=== PATIENT | male | born 1970 | race Caucasian/White ===

== ENCOUNTER → 2020-03-23 08:16 | Outpatient (CLI) | payer OTHER, SELFPAY ==
--- NOTE | 2020-03-23 08:29 | RAD_ITS ---
STUDY: X-RAY - ESOPHAGUS (BARIUM SWALLOW) WITH FLUOROSCOPY REASON FOR EXAM: Male, 50 years old. Acid reflux mostly at night, food getting stuck mid esoph TECHNIQUE: 18 view(s) of the esophagus were obtained following swallowing of barium. FLUOROSCOPY TIME (if supplied): (0:30) minutes/seconds COMPARISON: None. FINDINGS: There is no demonstrated esophageal foreign body. There is no demonstrated stricture or mucosal abnormality. There is circumferential narrowing of the distal esophagus at the gastroesophageal junction. The patient ingested a 12 mm tablet of barium. The tablet distracted at the gastroesophageal junction. Normal visualized aortic arch and descending thoracic aorta. Normal visualized pulmonary parenchyma. Normal visualized osseous structures of the thorax. RAD/Esophagus Dual Contrast IMPRESSION: Circumferential narrowing in the distal esophagus at the level of the gastroesophageal junction with trapping of the 12 mm tablet of barium. Electronically Signed: Jacek Chiang, at 12:23 EST , Service support ,
== END ==
PROVIDERS: PCP Nurse Practitioner Family; Referring Provider Internal Medicine Gastroenterology; Visit Provider Internal Medicine Gastroenterology
DX: R13.10 Dysphagia, unspecified (principal)
CPT/HCPCS: 74221

== ENCOUNTER 2020-06-23 17:32 | Emergency (ER) | payer OTHER, SELFPAY ==
[2020-06-23 17:34] VITALS: BP 145/100; PULSE 92; RESP 16; TEMP 35.9; O2SAT 98; BMI 26.1
[2020-06-23 17:39] VITALS: BP 145/100; PULSE 92; RESP 18; TEMP 35.9; O2SAT 98
--- NOTE | 2020-06-23 19:15 | RAD_ITS ---
STUDY: X-RAY - RIGHT KNEE REASON FOR EXAM: Male, 50 years old. knee injury TECHNIQUE: 4 view(s) of the knee. COMPARISON: None. FINDINGS: Normal visualized distal femur. Normal visualized proximal tibia and fibula. Normal proximal tibiofibular articulation. There is no demonstrated fracture. Normal medial femorotibial compartment. Normal lateral femorotibial compartment. Normal patellofemoral articulation. There is no demonstrated joint effusion. The soft tissue structures are unremarkable. RAD/Knee 4 or More Views IMPRESSION: Normal x-ray examination of the knee. Electronically Signed: Choco Carranza MD at 20:05 EST , Service support ,
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
[2020-06-23 20:46] VITALS: BP 140/87; PULSE 71; RESP 16; O2SAT 99
== END 2020-06-23 20:47 | disposition home or self-care (01) ==
PROVIDERS: Emergency Provider Emergency Medicine; PCP Nurse Practitioner Family
DX: S83.512A Sprain of anterior cruciate ligament of left knee, initial encounter (principal); Y04.0XXA Assault by unarmed brawl or fight, initial encounter
CPT/HCPCS: 73564; 99283

== ENCOUNTER 2021-02-16 14:34 | Emergency (ER) | payer OTHER, SELFPAY ==
[2021-02-16 14:35] VITALS: BP 170/95; PULSE 97; RESP 15; TEMP 36.3; O2SAT 94; BMI 24.9
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
[2021-02-16 16:26] LABS: Amphetamine Urine VISTA NEGATIVE (<1000 ng/mL); Barbiturate Urine VISTA NEGATIVE (< 200 ng/mL); Benzodiazepine Urine VISTA NEGATIVE (< 200 ng/mL); Cocaine Urine VISTA NEGATIVE (< 300 ng/mL); Ecstacy Urine VISTA NEGATIVE (< 500 ng/mL); Methadone Urine VISTA NEGATIVE (< 300 ng/mL); PCP Urine VISTA NEGATIVE (< 25 ng/mL); THC Urine VISTA NEGATIVE (< 50 ng/mL); Vista UDS pH Range 5
== END 2021-02-16 16:54 | disposition home or self-care (01) ==
PROVIDERS: Emergency Provider Emergency Medicine; PCP Nurse Practitioner Family
DX: Z77.098 Contact with and (suspected) exposure to other hazardous, chiefly nonmedicinal, chemicals (principal)
CPT/HCPCS: 80307; 99283

== ENCOUNTER → 2022-02-03 | Outpatient (CLI) | payer OTHER, SELFPAY ==
--- NOTE | 2022-02-03 15:04 | MRI_ITS ---
STUDY: MRI LUMBAR SPINE WITHOUT CONTRAST REASON FOR EXAM: Male, 51 years old. Lumbar spinal stenosis and spondylosis. TECHNIQUE: Standardized fat and water weighted pulse sequences were obtained in the sagittal and axial planes. COMPARISON: None FINDINGS: T11-T12 and T12-L1: (Sagittal only). Normal endplates. Normal disc height, hydration and morphology. No ventral extradural defects. Normal central canal and bilateral intervertebral neural foramina. Normal lumbar lordosis. There is no substantial scoliosis. Normal conus medullaris that terminates at the mid L1 vertebral body level. L1-2: Normal endplates. Normal disc height, hydration and morphology. Normal bilateral facet joints. Normal central canal and bilateral lateral recesses. Normal bilateral intervertebral neural foramina. L2-3: Normal endplates. Normal disc height, hydration and morphology. Normal bilateral facet joints. Normal central canal and bilateral lateral recesses. Normal bilateral intervertebral neural foramina. L3-4: Normal endplates. Schmorl''s node in the L4 superior endplate with mild reactive edema. Mild disc space height narrowing. Mild ventral extradural defect due to posterior bulging annulus. Normal facet joints. Normal central canal and bilateral lateral recesses. Normal bilateral intervertebral neural foramina. L4-5: Normal endplates. Minimal disc space height narrowing with normal disc hydration. Mild ventral extradural defect due to small posterior bulging annulus. Mild left degenerative facet arthropathy. Normal right facet joint. Normal central canal and bilateral lateral recesses. Normal bilateral intervertebral neural foramina. L5-S1: Normal endplates. Moderately pronounced disc space height narrowing. Minimal ventral extra dural defect due to small posterior bulging annulus. 5.3 x 3.4 mm left medial synovial cyst. This is causing stenosis of the left lateral recess with suspicious minimal anterior displacement of the left S1 nerve root sleeve. Normal central canal and right lateral recess. Normal bilateral intervertebral neural foramina. Normal visualized sacral ala. Normal visualized paraspinous soft tissue structures. MRI/Spine Lumbar (Routine) IMPRESSION: 1. 5.3 x 3.4 mm left medial synovial cyst at L5-S1 disc space level causing stenosis of the left lateral recess. There is is suspicious anterior displacement of the left S1 nerve root sleeve. Additionally, small posterior bulging annulus and moderately pronounced L5-S1 degenerative disc space height narrowing. 2. Small L4-L5 posterior bulging annulus. 3. Small L3-L4 posterior bulging annulus and Schmorl''s node in the L4 superior with mild reactive edema of the underlying vertebral marrow. 4. No MRI evidence of lumbar extruded disc fragment. Electronically Signed: Fidel Hendricks MD at 16:03 EDT ,
== END | disposition home or self-care (01) ==
PROVIDERS: PCP Nurse Practitioner Family; Visit Provider Orthopaedic Surgery
DX: M48.061 Spinal stenosis, lumbar region without neurogenic claudication (principal); M51.36 Other intervertebral disc degeneration, lumbar region; M47.816 Spondylosis without myelopathy or radiculopathy, lumbar region
CPT/HCPCS: 72148

== ENCOUNTER → 2022-06-08 | Outpatient (CLI) | payer OTHER, SELFPAY ==
[2022-06-08 16:29] LABS: Hemoglobin 15.9 g/dL (13.0-16.5)
[2022-06-08 17:53] LABS: ALB/GLOB Ratio 1.1 RATIO (0.9-2.4); AST(SGOT) 24 U/L (15-37); Alanine Aminotransfer ALT/SGPT 43 U/L (16-61); Albumin, Serum 4.1 g/dL (3.2-5.0); Alkaline Phosphatase 132 U/L (45-117); Anion Gap 8 (5-15); BUN 27 mg/dL (7-18); BUN/Creat Ratio 23.1 RATIO (10-20); Calcium,Total 8.6 mg/dL (8.5-10.1); Chloride 106 mmol/L (98-107); Cholesterol 162 mg/dL (200); Creatinine, Serum 1.17 mg/dL (0.70-1.30); EST Glomerular Filtration Rate 70 mL/min (>60); Est Glom Filt Rate - Afr Amer 84 mL/min (>60); Globulin 3.8 g/dL (2.2-4.2); Glucose 107 mg/dL (74-106); High Density Lipoprotein 48 mg/dL; PSA,Total- Diagnostic 2.68 ng/mL (0.0-4.0); Potassium 4.1 mmol/L (3.5-5.1); Protein, Total 7.9 g/dL (6.4-8.2); Sodium Level 139 mmol/L (136-145); Thyroid Stim Hormone (TSH) 2.08 uIU/mL (0.358-3.74); Triglycerides 118 mg/dL; Very Low Density Lipoprotein 24 mg/dL (5-40)
[2022-06-09 07:15] LABS: Estradiol 23.7 pg/mL; Follicle Stimulating Hormone 3.8 mIU/mL; Prolactin 7.3 ng/mL
[2022-06-13 15:08] LABS: Testosterone, % Free 2.56 % (1.50-4.20); Testosterone, Free 7.32 ng/dL (5.00-21.00)
[2022-06-13 21:00] LABS: Sex Hormone-binding Globulin 30.6 nmol/L (19.3-76.4); Testosterone, Total 286 ng/dL (264-916)
== END | disposition home or self-care (01) ==
PROVIDERS: PCP Nurse Practitioner Family; Visit Provider Registered Nurse
DX: Z00.00 Encounter for general adult medical examination without abnormal findings (principal); E29.1 Testicular hypofunction; R53.83 Other fatigue; Z12.5 Encounter for screening for malignant neoplasm of prostate; R68.82 Decreased libido; R63.5 Abnormal weight gain
CPT/HCPCS: 36415; 80053; 80061; 82670; 83001; 83002; 84146; 84153; 84270; 84402; 84403; 84443; 85014; 85018

== ENCOUNTER 2022-08-29 06:47 | Emergency (ER) | payer OTHER, SELFPAY ==
[2022-08-29 06:48] VITALS: BP 157/64; PULSE 78; RESP 18; TEMP 36; O2SAT 98
[2022-08-29 06:51] VITALS: BMI 24.5
--- NOTE | 2022-08-29 07:01 | RAD_ITS ---
STUDY: X-RAY - LEFT HAND REASON FOR EXAM: Male, 52 years old patient with left-sided hand pain. TECHNIQUE: 3 view(s) of the hand. COMPARISON: Prior comparison studies are not available for review at this time. FINDINGS: There is joint space narrowing of the radiocarpal articulation consistent with degenerative arthrosis. Normal distal radioulnar joint. Normal visualized carpal bones. Normal carpal articulations Normal carpometacarpal articulation of the thumb. Normal second through fifth carpometacarpal joints. Normal metacarpi. Normal metacarpophalangeal joint of the thumb. Normal interphalangeal joint of the thumb. Normal proximal and distal phalanges of the thumb. Normal metacarpophalangeal joints of the second through fifth fingers. Normal proximal and distal interphalangeal joints of the second through fifth fingers. Normal phalanges of the second through fifth fingers. The soft tissue structures are unremarkable. RAD/Hand Min 3 Views IMPRESSION: 1. Degenerative joint disease of the wrist, as described above. 2. No evidence for acute fracture or dislocation. Electronically Signed: Kim Larry MD at 7:27 EDT ,
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
== END 2022-08-29 07:44 | disposition home or self-care (01) ==
PROVIDERS: Emergency Provider Student in an Organized Health Care Education/Training Program; PCP Nurse Practitioner Family; Visit Provider Student in an Organized Health Care Education/Training Program
DX: S63.251A Unspecified dislocation of left index finger, initial encounter (principal); V94.89XA Other water transport accident, initial encounter; Y93.19 Activity, other involving water and watercraft; Y92.89 Other specified places as the place of occurrence of the external cause
CPT/HCPCS: 73130; 99282

== ENCOUNTER → 2022-12-01 | Outpatient (CLI) | payer OTHER, SELFPAY ==
--- NOTE | 2022-12-01 09:03 | EKG12_ITS ---
Test Reason : PREOP Blood Pressure : / mmHG Vent. Rate : 057 BPM Atrial Rate : 057 BPM P-R Int : 150 ms QRS Dur : 110 ms QT Int : 430 ms P-R-T Axes : 028 -41 -25 degrees QTc Int : 418 ms Sinus bradycardia Left axis deviation Incomplete right bundle branch block Nonspecific ST abnormality Abnormal ECG Confirmed by GREER HERNANDEZ ([id number]), film editor supervisor JOLYNN BLEDSOE ([id number]) on 12/06/2022 9:16:06 AM Referred By: CORDELL Confirmed By:GREER HERNANDEZ
[2022-12-01 09:43] LABS: Absolute Lymphocyte Count 1.83 X10^3/uL (0.83-4.51); Absolute Neutrophil Count 3.8 X10^3/uL (2.0-7.7); Basophil# 0.03 X10^3/uL; Basophil% 0.4 % (0-1); Eosinophil# 0.45 X10^3/uL; Eosinophils% 6.6 % (0-5); Hematocrit 48.8 % (40-54); Hemoglobin 16.7 g/dL (13.0-16.5); Lymphocyte # 1.83 X10^3/ul (0.83-4.51); Lymphocyte % 26.9 % (19-41); Mean Corp Hgb Conc 34.2 g/dL (32-36); Mean Corpuscular Hgb 33.3 pg (27.0-32.0); Mean Corpuscular Volume 97.4 fL (80-94); Mean Platelet Vol. 11.2 fl (6.2-12.0); Monocyte% 10.3 % (0-10); NRBC Flagged by Analyzer 0 % (0-5); Neutrophil # 3.76 X10^3/uL (2.7-7.7); Neutrophil % 55.4 % (47-70); Platelet Count 265 K/mm3 (150-450); RBC Distribution Width CV 13.1 % (11.6-14.6); RBC Distribution Width SD 46.5 fl (35.1-43.9); Red Blood Count 5.01 M/mm3 (4.6-6.2); White Blood Count 6.8 K/mm3 (4.4-11.0)
[2022-12-01 10:16] LABS: Anion Gap 3 (5-15); BUN 18 mg/dL (7-18); BUN/Creat Ratio 15.8 RATIO (10-20); Calcium,Total 8.7 mg/dL (8.5-10.1); Chloride 108 mmol/L (98-107); Creatinine, Serum 1.14 mg/dL (0.70-1.30); EST Glomerular Filtration Rate 72 mL/min (>60); Est Glom Filt Rate - Afr Amer 87 mL/min (>60); Glucose 90 mg/dL (74-106); Potassium 4.1 mmol/L (3.5-5.1); Sodium Level 139 mmol/L (136-145)
== END | disposition home or self-care (01) ==
PROVIDERS: PCP Nurse Practitioner Family; Visit Provider Student in an Organized Health Care Education/Training Program
DX: Z01.818 Encounter for other preprocedural examination (principal); Z01.810 Encounter for preprocedural cardiovascular examination
CPT/HCPCS: 36415; 80048; 85025; 93005

== ENCOUNTER → 2023-02-03 | Outpatient (CLI) | payer OTHER, SELFPAY ==
--- NOTE | 2023-02-03 15:15 | LES_PTH ---
PATIENT: SILVANA DUNBAR LOC: [facility] U#:[id number] AGE/SX: 52/M ROOM: RE02/03/[address]: Dr. Ronald Stahl MD : 1970 BED: DIS: 02/03/2023 SPEC #: [id number] RECD: 02/03/23 15:16 STATUS: HENOK REJoselin #: [id number] DERIK: 02/03/23 15:[address]: Ronald Stahl DEPT: SURGICAL PATHOLOGY RECD BY: Paddy Escobedo ENTERED: 02/06/23 10:51 SP TYPE: Lesion OTHR DR: Velia Duarte, SHANK TAPER-C Tissues: Skin of head, NOS Procedures: Surgery Specimen Level III HEADER OPERATION: Excision left christianity lesion PRE-OP DIAGNOSIS: Left christianity lesion TISSUE SUBMITTED: Left christianity lesion MICROSCOPIC DIAGNOSIS Lesion of left christianity, biopsy: Mature adipose tissue (lipoma). AM:tere 02/07/2023 MICROSCOPIC DESCRIPTION Slides are reviewed. GROSS DESCRIPTION Received in fixative is one container labeled with the patient's name and designated left christianity. The specimen consists of an irregular piece of soft tissue measuring 2.5 x 1.0 x 0.5 cm. The specimen is bisected and reveals yellow adipose cut surfaces. The entire specimen is submitted in one cassette. / SJ:tere 02/06/2023 TC:1 CPT: 56862
== END | disposition home or self-care (01) ==
LOC: LABSPEC 15:22
PROVIDERS: PCP Nurse Practitioner Family; Visit Provider Surgery
DX: R69 Illness, unspecified (principal)
CPT/HCPCS: 88304; 88305

== ENCOUNTER 2023-10-28 08:30 | Emergency (ER) | payer OTHER, SELFPAY ==
[2023-10-28 08:31] VITALS: BP 161/88; PULSE 89; RESP 16; O2SAT 98
[2023-10-28 08:32] VITALS: BP 161/88; PULSE 89; RESP 12; TEMP 36.2; O2SAT 100; BMI 20.2
--- NOTE | 2023-10-28 09:23 | EX.ED.DYSGE1 ---
HPI History of Present Illness Chief Complaint: Nosebleed Narrative Narrative: 53-year-old male who denies significant past medical history presents with nosebleeds that has had intermittently for the last week. He does not take blood thinners. He states it was mainly coming from the right nares but yesterday began coming out of both sides. He can feel it running down the back of his throat. He has tried multiple times to pack the area and even tried to use quick clot. He has continued nosebleeding. He denies any chest pain or shortness of breath, no lightheaded feeling or dizziness. No dark stool. He presents wanting cauterized to stop the bleeding. [facility] Medical History Lipoma Biceps muscle tear Osteoarthritis Home Medications ?Medication ?Instructions ?Recorded ?Last Taken ?Type NK 02/16/21 Unknown History Allergy/AdvReac Type Severity Reaction Status Date / Time No Known Allergies Allergy Verified 10/28/23 08:31 Surgical History History of surgery on arm Social History Smoking Status: Former smoker alcohol intake: former details: social substance use type: does not use caffeine: Yes additional social history: [place] [employer] ROS ROS ED ROS Narrative Constitutional: No fever, no chills. HEENT: No sore throat. No neck pain. No loss of vision. No rhinorrhea. Right nares bleeding, feeling going down the back of his throat. Became bilateral today. Cardiovascular: No chest pain. No palpitations. No pedal edema. Respiratory: No cough, no shortness of breath. Abdominal: No abdominal pain. No nausea. No vomiting. Genitourinary: No dysuria. No hematuria. Musculoskeletal: No myalgias. No arthralgias. Neurologic: No headaches. No dizziness. No lightheadedness. Skin: No rash. No change in color. No other bleeding diathesis. Psychiatric: No depression. No anxiety. EXAM Physical Exam Narrative Exam Narrative: Afebrile. Vital signs noted. HEENT: Normocephalic. Atraumatic. PERRL, EOMI. Neck soft and supple. No point tenderness or step off. Small amount of dried blood right nares, with old blood posteriorly. No noted anterior bleeding. Left nares patent. No brisk bleeding posterior pharynx. No other noted bleeding diathesis on exam. Cardiovascular: Regular rate and rhythm. No murmurs, rubs, or gallops appreciated. Respiratory: No tachypnea. Lungs clear to auscultation bilaterally. Gastrointestinal: Abdomen soft, nontender, with normoactive bowel sounds. No rebound or guarding. Neurological: Awake. Alert. Nonfocal, nonlateralizing. Skin: No rash. Normal color. No pallor. Musculoskeletal: No pedal edema. Full range of motion extremities. Const Vital Signs: 10/28/23 08:31 10/28/23 08:32 10/28/23 10:47 Temperature 97.1 F L 97.9 F Temperature Source Temporal Pulse Rate 89 89 69 Respiratory Rate 16 12 16 Blood Pressure 161/88 H 161/88 H 176/97 H Blood Pressure Mean 112 112 123 Pulse Ox 98 100 99 Oxygen Delivery Method Room Air Room Air MDM MDM MDM Narrative Medical decision making narrative: I discussed with the patient nasal packing. He states he has been packing his nose all night. I am unable to visualize any area to cauterize as I think his bleed is more posterior currently. I do feel laboratory work is indicated. Lidocaine 4% and Afrin nasal spray will be used to numb the area on a cottonball. After removal, there is no active bleeding. I used the nasal speculum to inspect and there is no anterior area with which to cauterize. Initial attempt at posterior rapid Rhino with airway was made, but patient states that he had his nose broken twice remotely. He did not tolerate this. I was able to insert an anterior rapid Rhino and inflate the balloon to approximately 8 mL of air. Patient will be ambulated. There is currently no active bleeding. He was referred to otolaryngology for packing removal in 3 to 5 days. Return instructions to the emergency department were reviewed. Disposition is discharged in stable condition. Discharge Plan Triage Chief Complaint: Nosebleed ED Provider: Fidel Chirinos Dx/Rx/DC Orders Clinical Impression: Epistaxis Instructions: ED Epistaxis (Adult) Prescriptions: No Action NK Primary Care Provider: Velia Duarte NP Referrals: Lorenzo Mercedes MD [Med Staff - Active Staff] - 3-5 Days Velia Duarte NEUROLOGY TECHNOLOGIST, NEUROLOGY TECHNOLOGIST-C [Primary Care Provider] - Activity Restrictions/Additional Instructions: Follow-up with otolaryngology in 3 to 5 days for packing removal. Return to the emergency department with increased bleeding, new or worsening symptoms. Print Language: Macedonian Disposition Disposition: Home, Self Care Discharge Date/Time: 10/28/23 10:50
[2023-10-28] MEDS: Lidocaine 4% 50 ML Bottle TOPICAL (09:33)
[2023-10-28] MEDS: Oxymetazoline 0.05% 1 SPRAY SPRAY.BTL 2 SPRAY NASAL (09:33)
[2023-10-28 10:47] VITALS: BP 176/97; PULSE 69; RESP 16; TEMP 36.6; O2SAT 99
== END 2023-10-28 10:50 | disposition home or self-care (01) ==
PROVIDERS: Emergency Provider Emergency Medicine; PCP Nurse Practitioner Family; Visit Provider Emergency Medicine
DX: R04.0 Epistaxis (principal); Z87.891 Personal history of nicotine dependence
CPT/HCPCS: 30905; 99282; A4216

== ENCOUNTER 2023-10-28 19:33 | Day surgery (SDC) | payer OTHER, SELFPAY ==
[2023-10-28 19:33] VITALS: BP 164/111; PULSE 88; RESP 16; TEMP 36.2; O2SAT 97; BMI 23.7
--- NOTE | 2023-10-28 19:52 | EDS_ITS ---
HPI History of Present Illness Chief Complaint: Nosebleed Detail of Chief Complaint: Nosebleed Informant: patient Narrative Narrative: Patient presents to the emergency department complaint of a nosebleed that started around 3 AM. Patient was seen in the emergency department earlier this morning and had a Rhino Rocket placed. Patient states while at home started having more bleeding down the back of the throat and both sides of the nose and comes in for repeat evaluation. Does not have history of nosebleeds. Denies any trauma. Does not have any blood dyscrasias or bleeding issues [facility] Medical History Lipoma Biceps muscle tear Osteoarthritis Home Medications ?Medication ?Instructions ?Recorded ?Last Taken ?Type NK 02/16/21 Unknown History Allergy/AdvReac Type Severity Reaction Status Date / Time No Known Allergies Allergy Verified 10/28/23 19:33 Surgical History History of surgery on arm Social History Smoking Status: Former smoker alcohol intake: former details: social substance use type: does not use caffeine: Yes additional social history: [place] [employer] ROS ROS ED Review of Systems ROS Unobtainable: other Constitutional Constitutional ED: Reports lethargy; Denies chills, fever(s), sweats or weight loss Eyes Eyes: Denies blurry vision, change in vision or diplopia ENT ENT ED: Reports other Details: Nosebleed ; Denies rhinorrhea or sore throat Cardiovascular Cardiovascular: Denies chest pain, orthopnea or racing heartbeat Respiratory/Chest Respiratory/Chest: Denies cough, dyspnea, dyspnea on exertion, orthopnea or sputum Gastrointestinal Gastrointestinal: Denies abdominal pain, diarrhea, nausea or vomiting Genitourinary Genitourinary ED: Denies dysuria, hematuria or urinary frequency Musculoskeletal Musculoskeletal: Denies arthralgias, back pain, myalgias or neck pain Integumentary Denies abscess, Abrasions or rash Neurologic Neurologic: Denies headache(s) or weakness Psychiatric Psychiatric: Denies anxiety, depression or suicidal thoughts Endocrine Endocrinology: Denies polydipsia, polyphagia or polyuria Hematologic/Lymphatic Hematologic/Lymphatic: Denies easy bleeding, easy bruising or lymphadenopathy Allergic/Immunologic Allergic/Immunologic ED: Denies mouth swelling, tongue swelling or urticaria EXAM Physical Exam Const Vital Signs: 10/28/23 19:33 10/28/23 20:49 10/28/23 22:39 Temperature 97.1 F L 97.7 F L Temperature Source Temporal Oral Pulse Rate 88 91 74 Respiratory Rate 16 16 18 Blood Pressure 164/111 H 173/93 H 170/91 H Blood Pressure Mean 128 119 117 Blood Pressure Source Monitor Blood Pressure Position Semi-Fowlers Blood Pressure Location Right Arm Pulse Ox 97 98 97 Oxygen Delivery Method Room Air Room Air Room Air Positive well nourished and well developed General Appearance ED: well developed and NAD HEENT Reports TM's clear and moist mucous membranes HEENT Narrative: Patient presents with Rhino Rocket to right side of nose. There is no bleeding noted down the oropharynx. No bleeding from the left side of the nose. normocephalic and atraumatic; Negative for trauma or tenderness Tympanic Membrane ED: Yes TM's clear Eyes PERRL and EOMs intact bilaterally General Eye ED: Negative for pale conjunctiva or scleral icterus Neck no lymphadenopathy, supple and no JVD General: Negative for tenderness Chest Wall inspection of chest normal and palpation of chest normal Chest: Negative for tenderness Resp normal respiratory effort and clear to auscultation bilaterally Effort and Inspection: Negative for respiratory distress or pain with movement Auscultation: Negative for rhonchi, wheezes or diminished lung sounds Cardio regular rate, regular rhythm, S1 normal heart sound, S2 normal heart sound and no murmurs Peripheral Pulses: pulses 2+ throughout GI normal to inspection, nondistended, normoactive bowel sounds, soft to palpation, non-tender, non-distended and no masses Back/Spine no CVA tenderness and no thoracic nor lumbar tenderness Extremity normal to inspection General Extremety ED: Negative for edema General Extremity: Negative for edema Neuro oriented x3, CN's II-XII intact bilaterally, no sensory deficits noted and gait normal Sensorium / Orientation: awake, alert, oriented to person, oriented to place and oriented to time Motor Exam: strength 5/5 throughout and strength abnormal Psych mental status grossly normal Skin no rashes or lesions noted and no wounds MDM MDM MDM Narrative Medical decision making narrative: Patient presents with a nosebleed seen earlier today and bleeding despite Rhino Rocket in the right nasal vault. Patient bleeding down the back of her throat and the other side of the nose at times more severe than others. Morning physician could not locate the source of the bleed and postulated there could be a posterior bleed. I did place an IV and CBC with differential obtained showed a white count 10.0 with hemoglobin 14.9 and platelet count of 393. Patient was hypertensive on arrival so I did give him 1 dose of clonidine p.o. Discussed case with Dr. Lorenzo Mercedes who presented to the emergency department to evaluate patient as I had concerned about removing the Rhino Rocket with a posterior hemorrhage and potentially having more significant bleeding. Dr. Feliz evaluated the patient and felt that he does have a posterior bleed with a polyp and severe nasal septal deviation toward the side of the bleeding and will not require the OR to definitively treat. Patient will be admitted to the operating room and final disposition will be per Dr. Lorenzo Mercedes Lab Data Attestation: I reviewed the patient's lab results. Labs: Laboratory Results - last 24 hr 10/28/23 19:52 WBC 10.0 RBC 4.56 L Hgb 14.9 Hct 45.4 MCV 99.6 H MCH 32.7 H MCHC 32.8 RDW Std Deviation 57.9 H RDW Coeff of Tiffani 15.7 H Plt Count 393 MPV 10.0 Immature Gran % (Auto) 1.600 H Neut % (Auto) 60.8 Lymph % (Auto) 15.6 L [place] % (Auto) 8.9 Eos % (Auto) 12.6 H Baso % (Auto) 0.5 Absolute Neuts (auto) 6.1 Absolute Lymphs (auto) 1.56 Nucleated RBC % 0 Discharge Plan Triage Chief Complaint: Nosebleed ED Provider: Dannie Baron Dx/Rx/DC Orders Clinical Impression: Acute posterior epistaxis, Hypertension Primary Care Provider: Velia Duarte [employer] SUPPORT ASSOCIATE Disposition [facility]
[2023-10-28 20:04] LABS: Absolute Lymphocyte Count 1.56 X10^3/uL (0.83-4.51); Absolute Neutrophil Count 6.1 X10^3/uL (2.0-7.7); Basophil# 0.05 X10^3/uL; Basophil% 0.5 % (0-1); Eosinophil# 1.26 X10^3/uL; Eosinophils% 12.6 % (0-5); Hematocrit 45.4 % (40-54); Hemoglobin 14.9 g/dL (13.0-16.5); Lymphocyte # 1.56 X10^3/ul (0.83-4.51); Lymphocyte % 15.6 % (19-41); Mean Corp Hgb Conc 32.8 g/dL (32-36); Mean Corpuscular Hgb 32.7 pg (27.0-32.0); Mean Corpuscular Volume 99.6 fL (80-94); Monocyte# 0.89 X10^3/uL; Monocyte% 8.9 % (0-10); NRBC Flagged by Analyzer 0 % (0-5); Neutrophil % 60.8 % (47-70); Platelet Count 393 K/mm3 (150-450); RBC Distribution Width CV 15.7 % (11.6-14.6); RBC Distribution Width SD 57.9 fl (35.1-43.9); Red Blood Count 4.56 M/mm3 (4.6-6.2)
[2023-10-28 20:49] VITALS: BP 173/93; PULSE 91; RESP 16; O2SAT 98
[2023-10-28] MEDS: cloNIDine HCl 0.1 MG Tablet PO (20:56)
[2023-10-28 22:39] VITALS: BP 170/91; PULSE 74; RESP 18; TEMP 36.5; O2SAT 97; BMI 23.7
[2023-10-28 22:54] VITALS: BP 186/99; PULSE 70; RESP 18; TEMP 36.4; O2SAT 97
--- NOTE | 2023-10-28 23:42 | OP.PCM_ITS ---
Report of Operation Date of Procedure: 10/28/23 Pre-Operative Diagnosis: epistaxis Post-Operative Diagnosis: same Surgery/Procedure Performed:: endoscopic cautery right nasal hemorrhage Surgeon: Lorenzo Mercedes Type of Anesthesia: General Anesthesiologist: Hemant Jolly Estimated Blood Loss (mL): minimal Description of Procedure: The patient was taken to the operating on 10/29/2023. He was placed on the operating room table in the supine position. The head of bed is elevated 30 degrees. We initially started the procedure as a local MAC but converted to general as he was quite comfortable. I placed Afrin pledgets in the patient's nose. He had bleeding coming from very high. I was able to traced this up to the origin of the superior turbinate. He was bleeding from the septum adjacent to the superior turbinate. This was cauterized with suction cautery. This provided excellent hemostasis. He was also found to have polyps in the pos terior nasal cavity. I elected not to touch these given his uncontrolled hypertension and unrelated bleeding site. I then placed Angel on the cauterized area. I then packed the cauterized area with Surgicel fibrillar. I elected not to use any other packing because of the size of the space (deviated septum to the right). Some other areas in the nose were cauterized from instrument trauma. The nose was filled with Angel and then the procedure was terminated. The patient was then extubated and brought to the recovery room in stable condition. Blood loss minimal, replacement none. Sponge, needle, and instrument count were correct at the end of the procedure.
--- NOTE | 2023-10-28 23:44 | PCM.DC.SUM ---
Providers Primary Care Physician: LAKEISHA Barrera Reason For Visit: ENDOSCOPIC NASAL HEMORRHAGE Medications at Discharge Home Medications NK 02/16/21 Weight / BMI Weight Weight: 79.379 kg Body Mass Index (BMI) 23.7 ABG / Lab / Microbiology Data 10/28/23 19:52 Laboratory: Laboratory Results - last 24 hr 10/28/23 19:52: WBC 10.0, RBC 4.56 L, Hgb 14.9, Hct 45.4, MCV 99.6 H, MCH 32.7 H, MCHC 32.8, RDW Std Deviation 57.9 H, RDW Coeff of Tiffani 15.7 H, Plt Count 393, MPV 10.0, Immature Gran % (Auto) 1.600 H, Neut % (Auto) 60.8, Lymph % (Auto) 15.6 L, [place] % (Auto) 8.9, Eos % (Auto) 12.6 H, Baso % (Auto) 0.5, Absolute Neuts (auto) 6.1, Absolute Lymphs (auto) 1.56, Nucleated RBC % 0 D/C Instructions Discharge Diet: No restrictions Discharge Activity: Return to Normal Activity Additional Instructions: No nose blowing Start afrin 2 sprays right nostril twice a day for 3 days, then switch to saline 3 sprays right nostril three times per day for 14 days. Follow up with your PCP regarding your blood pressure [place]. Please Follow Up With: Lorenzo Mercedes MD When: 1-2 weeks Meaningful Use Info Meaningful Use Meaningful Use Diagnoses (Choose all that apply): None applicable Ischemic Stroke Statin Dosing Therapy Reference: STATIN DOSE THERAPY REFERENCE: * Patients > 75 years receive moderate or high dose statin therapy. * Patients 75 years or YOUNGER should receive HIGH intensity statin dose unless contraindicated. You will be required to document reason for non-treatment if statin daily dose does not meet guidelines. HIGH DOSE STATIN THERAPY DAILY Atorvastatin > than or = to 40 mg Rosuvastatin > than or = to 20 mg Amlodipine + Atorvastatin > than or = to 2.5/40 mg Ezetimibe + Simvastatin 10/80 mg Simvastatin 80mg Discharge Plan Admission Attending Provider: Lorenzo Mercedes Primary Care Provider: Velia Duarte NP Instructions Print Language: [place] Discharge Orders/Prescriptions Prescriptions: No Action NK Referrals / Follow Up: Velia Duarte NP, [facility] [Primary Care Provider] - Disposition Disposition (needs filled in before D/C Order can be placed): Home, Self Care
[2023-10-28] MEDS: Oxymetazoline 0.05% 1 SPRAY SPRAY.BTL 15 SPRAY (23:48)
[2023-10-28] MEDS: Lidocaine 4% 50 ML Bottle (23:48)
--- NOTE | 2023-10-28 23:50 | PRE.ANES_ITS ---
ASA Classification* ASA Classification ASA Classification: 2 and E Assessment & Plan Anesthesia* Anesthesia Assessment Anesthesia Assessment: Discussed sedation and/or anesthesia options, risks, benefits, and alternatives with patient/parents/legal guardian/POA. Questions invited. The patient/parents/legal guardian/POA seems to understand and agrees to proceed with anesthesia plan. Reviewed the physical assessment, medical history, allergy history and patient home medications list prior to surgery/procedure/anesthetic and documented any changes. Performed airway and anesthesia risk assessments. Anesthesia Type Anesthesia Type: MAC (see written pre anesthesia record for full assessment) Anesthesia Focused Assessment* Temperature: 97.5 F Pulse Rate: 70 Blood Pressure: 186/99 Respiratory Rate: 18 Pulse Ox: 97 Airway Assessment Mouth opens: >3 cm Mallampati Score: II Focused Labs Anesthesia Preop lab: CBC WBC 10.0 K/mm3 (4.4-11.0) 10/28/23 19:52 RBC 4.56 M/mm3 (4.6-6.2) L 10/28/23 19:52 Hgb 14.9 g/dL (13.0-16.5) 10/28/23 19:52 Hct 45.4 % (40-54) 10/28/23 19:52 Plt Count 393 K/mm3 (150-450) 10/28/23 19:52 CHEMISTRY Potassium 4.1 mmol/L (3.5-5.1) 12/01/22 09:22 Sodium 139 mmol/L (136-145) 12/01/22 09:22 BUN 18 mg/dL (7-18) 12/01/22 09:22 Creatinine 1.14 mg/dL (0.70-1.30) 12/01/22 09:22 Glucose 90 mg/dL (74-106) 12/01/22 09:22 TSH 2.08 uIU/mL (0.358-3.74) 06/08/22 15:46 COAG Pre-Assessment Diagnosis/Proposed Procedure Planned Operative Procedure(s): cautery epistaxis Anesthesia History 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 When Was Last Pacemaker Check QUESTION #4 FULL TEXT: You/Your Family Experience fever (hyperthermia) with Anesthesia Last Oral Intake Last Oral intake: Last Oral Intake NPO since 18:00 10/28/23 22:39 Meds taken in AM with sips of water? Meds patient instructed to clonidine given 2049 with 10/28/23 22:39 take am of surgery water PONV PONV - vulcanizing press operator: PONV - vulcanizing press operator Female HX of Motion Sickness HX of N/V After Surgery Non-Smoker Duration of Surgery greater than 60 minutes Number of Risk Factors PONV Score Height & Weight Height & Weight: Anesthesia: Height & Weight Height 6 ft 10/28/23 22:39 Weight: 79.379 kg 10/28/23 22:39 Body Mass Index (BMI) 23.7 10/28/23 22:39 Respiratory Assessment Respiratory Assessment - vulcanizing press operator: Respiratory Tract Infection Hx - vulcanizing press operator Hx Respiratory Tract Infection No 10/28/23 22:39 STOP Sleep Apnea STOP Sleep Apnea - vulcanizing press operator: STOP Sleep Apnea - vulcanizing press operator Hx Hypertension Yes: clonidine [place] 204910/28/23 22:39 Hx Sleep Apnea No 10/28/23 22:39 CPAP BIPAP Do you snore loudly (louder No 10/28/23 22:39 than talking or can be heard Do you often feel tired/ No 10/28/23 22:39 fatigued/ sleepy during daytime? Has anyone observed you stop No 10/28/23 22:39 breathing during sleep? STOP Results Negative 10/28/23 22:39 QUESTION #5 FULL TEXT : Do you snore loudly (louder than talking or can be heard through closed doors)? 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 Specify any problems Hx of Preganancy in last 3 Months Nurse Filling Out Transfusion & Questions: Date: Time: Patient unable to answer at this time (ie. confused, unrespo /Reproduction History /Reproductive History - vulcanizing press operator: /Reproductive Hx- vulcanizing press operator Hx Now No 10/28/23 22:39 Gestational Age (in weeks): EDC: Hx Hx Para Hx Section SAB No 10/28/23 22:39 PFSH Medical History Lipoma Biceps muscle tear Osteoarthritis Home Medications ?Medication ?Instructions ?Recorded ?Last Taken ?Type NK 02/16/21 Unknown History Allergy/AdvReac Type Severity Reaction Status Date / Time No Known Allergies Allergy Verified 10/28/23 19:33 Surgical History History of surgery on arm Social History Smoking Status: Former smoker alcohol intake: former details: social substance use type: does not use caffeine: Yes additional social history: [place] [employer] Review of Systems (Anesthesia) ROS Narrative System reviewed and no additional complaints, except as documented.
[2023-10-28 23:51] VITALS: BP 186/99; PULSE 70; RESP 18; TEMP 36.4; O2SAT 97
[2023-10-29] VITALS (7 sets, daily range): BP systolic 140–170; BP diastolic 75–103; PULSE 78–91; RESP 16–18; TEMP 2.7–37; O2SAT 97–99
--- NOTE | 2023-10-29 00:27 | PCM.CONS.GEN ---
Assessment & Plan Assessment/Plan (1) Hypertension: PLAN: Plan The patient is a 53 y/o [employer] w/ PMHx: OA, Hx Bicep muscle tear, Former tobacco use, although per record reviews have noted elevated BP upon assessments routine thus suspect patient has also undiagnosed and thus untreated hypertension who presents to the [facility] ED on 10/29/23 with acute epistaxis that started approximately 3 AM the day prior with ED evaluation at that time with a Rhino Rocket placed unfortunately patient had recurrent bleeding upon his discharge down the back of his throat and both sides of the nose prompting repeat evaluation with no history of trauma or prior nosebleeds and denied previous bleeding issues. #1. Acute epistaxis with concern for uncontrolled blood pressure with no formal previous diagnosis of hypertension but suspected underlying: Patient's status post successful endoscopic cautery of the right nasal hemorrhage, hemoglobin in the ED noted to be 14.9 with prior to this noted range 15-16 the certainly a drop, will obtain BMP to ensure renal function and electrolytes appropriate. Had initially placed to trial lisinopril 10 mg/HCTZ 12.5 mg x 1 and monitor in PACU; however, upon evaluation several trended blood pressures were in the 140/70 range thus discussed with ENT and at this point will defer initiation but give patient a prescription for lisinopril 5 mg with hold parameters and plan early follow-up with his primary care physician on 10/30/2023 for BP assessment in the office. Noted also upon discharge instructions that if he did end up taking the lisinopril that he would need a follow-up repeat basic metabolic panel in 1 to 2 weeks as well as close continued follow-up by primary care physician to assure his blood pressure is controlled. #2. Former tobacco use: Encourage continued tobacco cessation. #3. DVT prophylaxis: Given planned evaluation in PACU and plan discharge to home with recent epistaxis this is unnecessary. HPI Consult Data Date of Consult: 10/29/23 HPI Narrative Reason for Consultation: Elevated BP, uncontrolled. 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 w/ PMHx: OA, Hx Bicep muscle tear, Former tobacco use, although per record reviews have noted elevated BP upon assessments routine thus suspect patient has also undiagnosed and thus untreated hypertension who presents to the [facility] ED on 10/29/23 with acute epistaxis that started approximately 3 AM the day prior with ED evaluation at that time with a Rhino Rocket placed unfortunately patient had recurrent bleeding upon his discharge down the back of his throat and both sides of the nose prompting repeat evaluation with no history of trauma or prior nosebleeds and denied previous bleeding issues. Given ongoing bleeding ENT was consulted and patient was taken to the OR and an endoscopic cautery of the right nasal hemorrhage was performed with successful hemostasis. In the PACU postoperatively patient denies any significant lightheadedness, dizziness, chest pain or dyspnea. He denies any recent issues with headaches. He notes that he is been under a lot of stress with divorce proceedings. In the ED workup had included T97.1, heart rate 88, BP 164/111, respiratory rate 16, 97% on room air however repeat vital signs most recently noted to be 186/99 and continued elevations intraoperatively as well with concerns that this may be contributing to his nosebleed presentation although he has never had this prior. Labs upon ED evaluation included CBC with WBC 10, hemoglobin 14.9, MCV 99.6, platelet 393 with increased immature granulocytes but otherwise no acute findings. ENT Dr. Feliz requested evaluation of patient and assistance with blood pressure control for discharge planning. [facility] Medical History Former tobacco use Lipoma Biceps muscle tear Osteoarthritis Home Medications ?Medication ?Instructions ?Recorded ?Last Taken ?Type lisinopril 5 mg tablet 5 mg PO DAILY Hypertension #30 tabs 10/29/23 Unknown Rx Allergy/AdvReac Type Severity Reaction Status Date / Time No Known Allergies Allergy Verified 10/28/23 19:33 Family History Mother Hypertension Diabetes Father Hypertension Diabetes Brother Hypertension CVA (cerebral vascular accident) Surgical History (Updated 10/29/23 @ 01:[address] Priscilla Cabral MD) S/P nasal surgery History of surgery on arm Social History Smoking Status: Former smoker alcohol intake: former details: social substance use type: does not use caffeine: Yes additional social history: [place] [employer] ROS ROS Narrative Admission Review of Systems: CONSTITUTIONAL: No weight loss, fever, chills, + weakness or fatigue. HEENT: + Epistaxis. Eyes: No visual loss, blurred vision, double vision or yellow sclerae. Ears, Nose, Throat: No hearing loss, sneezing, congestion, runny nose or sore throat. SKIN: No rash or itching, lesions, wounds. CARDIOVASCULAR: No chest pain, chest pressure or chest discomfort, palpitations, edema, orthopnea, syncopal events. RESPIRATORY: No shortness of breath, cough or sputum, wheezing, hemoptysis. GASTROINTESTINAL: No anorexia, nausea, vomiting or diarrhea, abdominal pain, melena, BRBPR. GENITOURINARY: No dysuria, frequency, urgency or retention. NEUROLOGICAL: No headache, dizziness, syncope, paralysis, ataxia, numbness or tingling in the extremities, focal weakness, change in bowel or bladder control, seizure. MUSCULOSKELETAL: + muscle, back pain, joint pain or stiffness. HEMATOLOGIC: No anemia. + As noted active epistaxis LYMPHATICS: No enlarged nodes. No history of splenectomy. PSYCHIATRIC: No history of depression or anxiety. ENDOCRINOLOGIC: No reports of sweating, cold or heat intolerance. No polyuria or polydipsia. ALLERGIES: No history of asthma, hives, eczema or rhinitis. Physical Exam Narrative Physical Examination: General: Initially patient fatigued but eventually awakens and more alert, oriented x 3, cooperative, denies any complaints at this time, status post OR with epistaxis controlled. Skin: Normal color, normal turgor, no icterus, no cyanosis. HEENT: AT/NC, EOMI, PERRLA, dry MM, no carotid bruits or JVD noted, no evidence of epistaxis on the face but recent operative intervention. Lungs: Mildly diminished, greater bases, appropriate effort, no rales, ronchi or wheezing. Heart: Regular rate and rhythm; no gallop, rub audible. Abdomen: Soft, NTTP, ND, mildly hyperactive BS, no HSM. Extremities: No cyanosis, clubbing, or edema. Neurological: Patient awake, alert, oriented as noted, cognitive function improving as did have recent anesthetic; pupils equally reactive to light and accommodation, cranial nerves grossly normal, moving all 4 extremities, no focal deficits, strength mildly to moderately globally decreased given recent sedation but improving through evaluation. Psychiatric: Affect appears fatigued with recent sedation, no acute evidence of depressive or anxiety feelings. Lab / Micro Data 10/28/23 19:52 10/29/23 00:50 Labs: Laboratory Results - last 24 hr 10/28/23 19:52: WBC 10.0, RBC 4.56 L, Hgb 14.9, Hct 45.4, MCV 99.6 H, MCH 32.7 H, MCHC 32.8, RDW Std Deviation 57.9 H, RDW Coeff of Tiffani 15.7 H, Plt Count 393, MPV 10.0, Immature Gran % (Auto) 1.600 H, Neut % (Auto) 60.8, Lymph % (Auto) 15.6 L, [place] % (Auto) 8.9, Eos % (Auto) 12.6 H, Baso % (Auto) 0.5, Absolute Neuts (auto) 6.1, Absolute Lymphs (auto) 1.56, Nucleated RBC % 0 Charges/Coding Visit Charges Office Visits / Consults: 53099 ED Visit; Moderate Severity
--- NOTE | 2023-10-29 00:39 | PCM.POST.ANE ---
Anesthesia: Postop Eval I Current Vital Signs Temperature: 37 F Pulse Rate: 84 Blood Pressure: 143/103 Respiratory Rate: 18 Pulse Ox: 97 Assessment Airway patent: Yes Spontaneous unlabored respirations: Yes nausea: No Vomiting: No Anesthesia Complication: No Fluid Hydration Crystalloid volume administer (ml): 1 Total IV fluid infused: 1 Progress Note Anesthesia document: Postop Eval 1 completed: Yes
--- NOTE | 2023-10-29 00:40 | PCM.POSTANE2 ---
Anesthesia Postop Eval I Sum Postop Eval Completion status Anesthesia document: Postop Eval 1 completed: Yes Anesthesia Postop Eval I Summary Anesthesia Postop Eval I Summary: Anesthesia Postop Eval I: Assessment Summary Airway patent Yes 10/29/23 00:39 Spontaneous unlabored Yes 10/29/23 00:39 respirations Mental status nausea No 10/29/23 00:39 Vomiting No 10/29/23 00:39 Anesthesia Postop Eval I: Fluid Summary Crystalloid volume administer 1 10/29/23 00:39 (ml) Colloids volume administered ( ml) Blood Product volume administered (ml) Total IV fluid infused 1 10/29/23 00:39 Anesthesia Postop Eval I: Summary Notes Anesthesia Complication No 10/29/23 00:39 Anesthesia Complication Comment: Post-operative progress note Anesthesia: Postop Eval II Evaluation Mental status: Awake Pain Level: 0 nausea: No Vomiting: No
--- NOTE | 2023-10-29 00:45 | SUR.PHASEI ---
PER DR WAYNE, HOLD ORAL BP MEDS AT THIS TIME D/T BP OF 140/82
--- NOTE | 2023-10-29 00:45 | SUR.PHASEI ---
PER DR WAYNE, HOLD ORAL BP MEDS AT THIS TIME D/T BP OF 140/82
--- NOTE | 2023-10-29 01:00 | DCINST_ITS ---
Discharge Instructions Diet Discharge Diet: Low fat / Low cholesterol Activity Discharge Activity: - (Activity per ENT parameters given recent OR.) Dressing / Incision Call your doctor if your incision/area has: Continuous Slow Oozing, Sudden Increased Bleeding, Increased Pain/ Swelling and Foul Smelling Discharge Follow Up Care Please Follow Up With: Lorenzo Mercedes MD Test Results: Test results from this visit will be discussed in further detail at your follow- up appointment, if applicable. Discharge Plan Admission Primary Reason for Your Visit: Epistaxis with associated ABLA, Elevated BP without prior HTN diagnosis Attending Provider: Lorenzo Mercedes Primary Care Provider: Velia Duarte NP Instructions Patient Instructions: Hypertension Dc, ED Hypertension New Begin Treatment Additional Instructions / Restrictions: HYPERTENSION: Per prior trending and admission you likely have undiagnosed hypertension. Your blood pressures upon ED arrival and intraoperatively were significantly elevated both systolic and diastolic. When you transition from the operating room to the post operative care area your blood pressure however did improve but was still above goal at 145-147/70s. Given your recent epistaxis/nosebleed it is important to have controlled blood pressure. Per discussion with ENT we will would like to have you follow-up with your primary care physician on Monday to have a blood pressure check and in her office reevaluation. You have been given a prescription for low-dose lisinopril which has been sent to the pharmacy listed ([facility]) with hold parameters of avoidance of use of systolic less than 110. If upon reevaluation at your primary care office your blood pressures improve and you have not taken this medication then this may be unnecessary but given prolonged vital sign assessment suspect likely will need a small amount of blood pressure medication. EPISTAXIS: Please continue postoperative care and recommendations as well as follow-up as directed per ENT. If any concerns arise please contact their office immediately. Print Language: Kazakh Discharge Orders/Prescriptions Prescriptions: New lisinopril 5 mg tablet 5 mg PO DAILY Qty: 30 0RF Rx Instructions: Hold for SBP < 110 Referrals / Follow Up: Lorenzo Mercedes MD [Med Staff - Active Staff] - (As requested per ENT.) Velia Duarte NP, [employer] [Primary Care Provider] - (Please follow-up with your PCP as discussed with ENT on 10/30/2023 for an office blood pressure check which may be done with nursing staff. Please review current presentation and medication addition with hold parameters. If you do start taking the lisinopril it is important to have a follow-up basic metabolic panel in 1 to 2 weeks for reassessment. ) Disposition Disposition (needs filled in before D/C Order can be placed): Home, Self Care
[2023-10-29 01:42] LABS: Anion Gap 3 (5-15); BUN 15 mg/dL (7-18); BUN/Creat Ratio 11.9 RATIO (10-20); Calcium,Total 7.6 mg/dL (8.5-10.1); Chloride 112 mmol/L (98-107); Creatinine, Serum 1.26 mg/dL (0.70-1.30); EST Glomerular Filtration Rate 64 mL/min (>60); Est Glom Filt Rate - Afr Amer 77 mL/min (>60); Estimated Creatinine Clearance 74.42 ml/min; Glucose 110 mg/dL (74-106); Potassium 4.4 mmol/L (3.5-5.1); Sodium Level 141 mmol/L (136-145)
== END 2023-10-29 01:46 | disposition home or self-care (01) ==
LOC: ED 19:47 → SDC 22:44 → ACINP 22:44
PROVIDERS: Family Medicine; Emergency Provider Emergency Medicine; PCP Nurse Practitioner Family; Visit Provider Otolaryngology
PROC: (CPT 30901; principal; 2023-10-28 23:30)
DX: R04.0 Epistaxis (principal); I10 Essential (primary) hypertension; J34.2 Deviated nasal septum; J33.9 Nasal polyp, unspecified; Z87.891 Personal history of nicotine dependence
CPT/HCPCS: 30901; 00160; 80048; 85025; 99283; J7030; A4216